=== PATIENT | male | born 1990 | race Caucasian/White ===

== ENCOUNTER → 2023-08-07 | Outpatient (CLI) | payer OTHER ==
--- NOTE | 2023-08-08 12:13 | CT ---
EXAMINATION TYPE: CT lumbar spine wo con DATE OF EXAM: 08/07/2023 9:51 AM COMPARISON: None HISTORY: muscle strain low back CT DLP: 596.3 mGycm Automated exposure control for dose reduction was used. Unenhanced CT of the lumbar spine was performed. Bone and soft tissue window settings are submitted as well as coronal and sagittal reconstructions. L1-L2: Normal disc space height. No disc herniation protrusion or central stenosis. No facet joint arthropathy. No evidence for foraminal encroachment. L2-L3: Normal disc space height. No disc herniation protrusion or central stenosis. No facet joint arthropathy. No evidence for foraminal encroachment. L3-L4: Normal disc space height. No disc herniation protrusion or central stenosis. No facet joint arthropathy. No evidence for foraminal encroachment. L4-L5: Right paracentral disc bulge which narrows the right neural foramen. No evidence for davey her niation or central stenosis. Left neural foramen is patent. L5-S1: Normal disc space height. No disc herniation protrusion or central stenosis. No facet joint arthropathy. No evidence for foraminal encroachment. IMPRESSION: Broad-based right paracentral disc bulge at L4-5 resulting in right foraminal encroachment.
--- NOTE | 2023-08-08 12:14 | CT ---
EXAMINATION TYPE: CT shoulder LT wo con DATE OF EXAM: 08/07/2023 COMPARISON: None HISTORY: shoulder pain CT DLP: 492.[address] of the left shoulder with reconstruction imaging. TECHNIQUE: Unenhanced CT of the left shoulder was performed with bone and soft tissue window settings submitted in the axial coronal and sagittal planes. At a separate workstation [id number] TR imaging was ob tained. FINDINGS: I do not see evidence for fracture or dislocation. No evidence for subacromial impingement as there is a flat acromium. No AC joint arthropathy. Glenohumeral joint space is well-preserved. No obvious rotator cuff abnormality seen on CT. MRI is much more sensitive and specific to rotator cuff pathology. No soft tissue masses appreciated. Visualized portions of the left lung are clear. IMPRESSION: 1. No discrete abnormality seen
== END | disposition home or self-care (01) ==
LOC: RADCTMAIN 08:46
PROVIDERS: ATTEND Family Medicine
DX: M51.36 Other intervertebral disc degeneration, lumbar region (principal); M75.42 Impingement syndrome of left shoulder; S39.012S Strain of muscle, fascia and tendon of lower back, sequela; M25.512 Pain in left shoulder; X58.XXXS Exposure to other specified factors, sequela
CPT/HCPCS: 72131